=== PATIENT | male | born 1995 | race Asian ===

== ENCOUNTER 2017-07-31 00:20 | Emergency (ER) | payer SELFPAY ==
[2017-07-31 00:30] VITALS: BP 169/90; PULSE 74; RESP 18; TEMP 98.3; O2SAT 99
== END 2017-07-31 01:20 | disposition left against medical advice (07) ==
LOC: NED 00:20
DX: R10.9 Unspecified abdominal pain (principal); Z53.21 Procedure and treatment not carried out due to patient leaving prior to being seen by health care provider
CPT/HCPCS: 99281